=== PATIENT | female | born 1995 | race Caucasian/White ===

== ENCOUNTER 2017-09-12 19:19 | Emergency (ER) | payer BC ==
[2017-09-12 19:28] VITALS: BP 119/64
--- NOTE | 2017-09-12 19:42 | UC ---
Complaint Female HPI - HPI Summary HPI Summary: SEVERAL DAYS OF THICK WHITE VAGINAL DISCHARGE AND IRRITATION. JUST FINISHED A COURSE OF MACROBID FOR A UTI SEVERAL DAYS AGO (SX STARTED WHILE TAKING THIS ABX) . THE WEEK BEFORE THAT WAS ON A 10 DAY COURSE OF PENICILLIN FOR TONSILLITIS. PT IS CURRENTLY NOT SEXUALLY ACTIVE. IS NOT CONCERNED ABOUT OR STD. NO FEVER. REPORTS SHE STILL HAS SOME URINARY FREQUENCY. - History Of Current Complaint Chief Complaint: [facility] Stated Complaint: DISCHARGE FEMALE Time Seen by Provider: 09/12/17 19:37 Hx Obtained From: Patient Hx Last Menstrual Period: 3 WEEKS AGO Onset/Duration: Gradual Onset, Lasting Days, Still Present Timing: Constant Severity Initially: Moderate Severity Currently: Moderate Pain Intensity: 0 Pain Scale Used: 0-10 Numeric Character: Not Applicable Aggravating Factor(s): Nothing Alleviating Factor(s): Nothing Associated Signs And Symptoms: Positive: Vaginal Discharge. Negative: Fever, Back Pain, Nausea, Vomiting(# Of Episodes =) - Allergies/Home Medications Allergies/Adverse Reactions: Allergies Allergy/AdvReac Type Severity Reaction Status Date / Time No Known Allergies Allergy Verified 09/12/17 19:27 Home Medications: Home Medications Cetirizine* [ZyrTEC 10 MG TAB*] 10 mg PO DAILY PRN 09/12/17 [History Confirmed 09/12/17] Levothyroxine TAB* [Synthroid TAB*] 50 mcg PO DAILY 09/12/17 [History Confirmed 09/12/17] PMH/Surg Hx/FS Hx/Imm Hx - Additional Past Medical History Additional PMH: SEASONAL ALLERGIES Endocrine History: Thyroid Disease, Hypothyroidism - Surgical History Surgical History: Yes Surgery Procedure, Year, and Place: wisdom teeth removal, tear duct surgery in childhood - Family History Known Family History: Positive: Hypertension - Social History Alcohol Use: Occasionally Substance Use Type: None Smoking Status (MU): Never Smoked Tobacco Review of Systems Constitutional: Negative Respiratory: Negative Cardiovascular: Negative Gastrointestinal: Negative Genitourinary: Frequency, Vaginal/Penile Discharge All Other Systems Reviewed And Are Negative: Yes Physical Exam Triage Information Reviewed: Yes Appearance: Well-Appearing, No Pain Distress, Well-Nourished Vital Signs: Initial Vital Signs Temp 97.5 F 09/12/17 19:24 Pulse 65 09/12/17 19:24 Resp 16 09/12/17 19:24 BP 119/64 09/12/17 19:24 Pulse Ox 100 09/12/17 19:24 Vital Signs Reviewed: Yes Eyes: Positive: Conjunctiva Clear ENT: Positive: Hearing grossly normal Neck: Positive: Supple Respiratory: Positive: No respiratory distress, No accessory muscle use Cardiovascular: Positive: Pulses Normal Abdomen Description: Positive: Nontender, Soft. Negative: CVA Tenderness (R), CVA Tenderness (L), Distended, Guarding Musculoskeletal: Positive: No Edema Neurological: Positive: Alert Psychological: Positive: Age Appropriate Behavior Skin: Negative: rashes Diagnostics - Laboratory Diagnostic Studies Completed/Ordered: URINE DIP UNREMARKABLE Complaint Female Dx - Course Course Of Treatment: URINE TEST UNREMARKABLE. PT DECLINES PELVIC EXAM TODAY. AFFIRM SELF COLLECTED. WILL TX EMPIRICALLY WITH DIFLUCAN. FOLLOW-UP WITH PCP IF NOT IMPROVING EXPECTED. - Differential Dx/Diagnosis Provider Diagnoses: VAGINITIS Discharge - Discharge Plan Condition: Stable Disposition: HOME Prescriptions: Fluconazole [Diflucan] 1 tab PO ONCE #2 tab Patient Education Materials: Vaginitis (ED) Referrals: Lara Lynn MD [Primary Care Provider] - If Needed Additional Instructions: URINE TEST TODAY UNREMARKABLE. WILL TREAT EMPIRICALLY FOR YEAST VAGINITIS. FOLLOW-UP PCP IF YOUR SYMPTOMS DO NOT IMPROVE WITH TREATMENT
== END 2017-09-12 20:39 | disposition home or self-care (01) ==
LOC: UCEAST 19:19
DX: N76.0 Acute vaginitis (principal); E03.9 Hypothyroidism, unspecified
CPT/HCPCS: 81003; 87480; 87510; 99212; G0463